=== PATIENT | female | born 1985 | race African-American/Black ===

== ENCOUNTER 2017-06-21 00:27 | Emergency (ER) | payer MEDICARE ==
[~2017-06-21] VITALS: Ht 177.8 cm; Wt 135.0 kg
[2017-06-21] MEDS ORDERED: IBUPROFEN 800MG TABLET PO ONE (06:15)
[2017-06-21 06:52] VITALS: BP 122/51
== END 2017-06-21 06:55 | disposition home or self-care (01) ==
LOC: ER 00:27
DX: K08.89 Other specified disorders of teeth and supporting structures (principal); R51 Headache
CPT/HCPCS: 81025; 99283

== ENCOUNTER 2017-06-21 22:02 | Emergency (ER) | payer MEDICARE ==
[~2017-06-21] VITALS: Ht 172.7 cm; Wt 113.0 kg
[2017-06-21 22:06] VITALS: BP 154/74
== END 2017-06-22 00:25 | disposition left against medical advice (07) ==
LOC: ER 22:02
DX: Z53.21 Procedure and treatment not carried out due to patient leaving prior to being seen by health care provider (principal)